=== PATIENT | male | born 1935 | race Caucasian/White ===

== ENCOUNTER 2018-02-04 13:10 | Emergency (ER) | payer MEDICARE, OTHER ==
[~2018-02-04] VITALS: Ht 172.7 cm; Wt 79.8 kg
[~2018-02-04 13:10] MED LIST: Aspir-Low81 MG PO; Mobic15 MG PO; Prinivil10 MG PO; VITAMIN D-32000 UNI1 PO
[2018-02-04 15:18] LABS: BASOPHILS ABSOLUTE AUTO 0.02 K/mm3 (0.00-0.23); BASOPHILS PERCENT AUTO 0 % (0-2); EOSINOPHILS ABSOLUTE AUTO 0.08 K/mm3 (0.00-0.68); EOSINOPHILS PERCENT AUTO 1 % (0-6); Hemoglobin 12.9 g/dL (13.5-17.5); IMMATURE GRAN ABSOLUTE AUTO 0.02 K/mm3 (0.00-0.10); IMMATURE GRAN PERCENT AUTO 0 % (0-1); LYMPHOCYTES ABSOLUTE AUTO 0.61 K/mm3 (0.84-5.20); LYMPHOCYTES PERCENT AUTO 7 % (21-46); MONOCYTES ABSOLUTE AUTO 0.74 K/mm3 (0.16-1.47); MONOCYTES PERCENT AUTO 9 % (4-13); Mean Corpuscular HGB 31.8 pg (26.0-34.0); Mean Corpuscular HGB Conc 33.9 g/dL (31.5-36.5); Mean Corpuscular Volume 94 fL (80-100); Mean Platelet Volume 9.1 fL (9.1-12.4); NEUTROPHILS ABSOLUTE AUTO 7.11 K/mm3 (1.96-9.15); NEUTROPHILS PERCENT AUTO 83 % (41-73); Platelet Count 137 K/mm3 (150-400); RDW Coefficient Variation 13.8 % (11.7-14.2); RDW Standard Deviation 47.5 fL (35.1-46.3); Red Blood Cell Count 4.06 M/mm3 (4.30-5.90); White Blood Cell Count 8.58 K/mm3 (4.00-11.30)
[2018-02-04 15:35] LABS: Anion Gap 9 mmol/L (6-16); Blood Urea Nitrogen 24 mg/dL (8-24); Bun/Creatinine Ratio 27.3 (12.0-20.0); CO2, Blood 22 mmol/L (21-32); Calcium, Blood 8.2 mg/dL (8.5-10.1); Chloride, Blood 108 mmol/L (98-108); Creatinine, Blood 0.88 mg/dL (0.60-1.20); Glomerular Filtration Rate >60 (60-); Glucose, Blood 107 mg/dL (70-99); Potassium, Blood 3.9 mmol/L (3.5-5.5); Sodium, Blood 139 mmol/L (136-145)
[2018-02-04] MEDS ORDERED: Norco 5-325 Ta1 EACH PO (19:47)
[2018-02-04] MEDS ORDERED: CEPH500 PO (19:47)
[2018-02-04] MEDS ORDERED: LEVFLO500 PO (19:47)
== END 2018-02-04 20:15 | disposition home or self-care (01) ==
LOC: ER 13:10
PROVIDERS: Emergency Medicine
DX: S01.312A Laceration without foreign body of left ear, initial encounter (principal); S40.012A Contusion of left shoulder, initial encounter; W11.XXXA Fall on and from ladder, initial encounter; I10 Essential (primary) hypertension; E78.5 Hyperlipidemia, unspecified
CPT/HCPCS: 12054; 13152; 13153; 36415; 73000; 80048; 85025; 90714; 96361; 96365; 96375; 99284; J0690; J3010; J7030

== ENCOUNTER → 2019-03-01 | Outpatient (CLI) | payer MEDICARE, OTHER ==
[~2019-03-01] MED LIST changes: +CEPH500 PO; +LEVFLO500 PO; +Norco 5-325 Ta1 EACH PO
== END | disposition home or self-care (01) ==
LOC: PLD 11:09 → LAB SHORT 11:09
DX: C44.41 Basal cell carcinoma of skin of scalp and neck (principal)
CPT/HCPCS: 88305

== ENCOUNTER → 2020-02-21 | Outpatient (CLI) | payer MEDICARE ==
[2020-02-21 12:37] LABS: Source, Urine Clean Catch
[2020-02-21 14:05] LABS: Bilirubin, Urine Neg (Neg); Blood, Urine Neg (Neg); Glucose Qualitative, Urine Neg (Neg); Ketones, Urine Neg (Neg); Leukocyte Esterase, Urine Neg (Neg); Nitrite, Urine Neg (Neg); Protein, Urine 1+ (Neg); Urobilinogen, Urine NORM (Normal)
[2020-02-21 14:49] LABS: Appearance, Urine Clear (Clear); Color, Urine Yellow (P-Yellow)
== END | disposition home or self-care (01) ==
LOC: LAB SHORT 12:36 → OLS 12:36 → LAB FUT 02-20 12:05
PROVIDERS: Internal Medicine
DX: R31.9 Hematuria, unspecified (principal)
CPT/HCPCS: 81003

== ENCOUNTER 2020-06-01 12:18 | Day surgery (SDC) | payer MEDICARE, OTHER ==
[~2020-06-01] VITALS: Ht 172.7 cm; Wt 70.9 kg
--- NOTE | 2020-06-01 13:22 | NUR ---
06/01/20 1322 Paz Nunez CALL LIGHT WITHIN REACH. PT AMBULATED TO BATHROOM TO VOID
--- NOTE | 2020-06-01 15:08 | NUR ---
06/01/20 1508 Paz Nunez PROCEDURE INCOMPLETE. PT WAS SCHEDULED FOR BARIUM ENEMA PER DR. BRIAN BAILEY.
== END 2020-06-01 15:00 | disposition home or self-care (01) ==
LOC: ORSCSDS 12:18
PROVIDERS: Surgery
PROC: 0DJD8ZZ Inspection of Lower Intestinal Tract, Via Natural or Artificial Opening Endoscopic (ICD-10-PCS; principal; 2020-06-01 13:30)
DX: R19.4 Change in bowel habit (principal); K56.699 Other intestinal obstruction unspecified as to partial versus complete obstruction; K57.30 Diverticulosis of large intestine without perforation or abscess without bleeding; Z86.010 Personal history of colon polyps; Z87.891 Personal history of nicotine dependence; I10 Essential (primary) hypertension; E78.5 Hyperlipidemia, unspecified; G47.33 Obstructive sleep apnea (adult) (pediatric); Z95.0 Presence of cardiac pacemaker; Z79.899 Other long term (current) drug therapy
CPT/HCPCS: J2704; J7120

== ENCOUNTER → 2020-08-07 | Outpatient (CLI) | payer MEDICARE, OTHER | END | disposition home or self-care (01) | LOC: PLD 11:01 → LAB SHORT 11:01 | DX: D04.4 Carcinoma in situ of skin of scalp and neck (principal) | CPT/HCPCS: 88305 ==

== ENCOUNTER 2020-09-06 13:44 | Observation (INO) | payer MEDICARE, OTHER ==
[~2020-09-06] VITALS: Ht 172.7 cm; Wt 72.6 kg
[2020-09-06 14:39] LABS: BASOPHILS ABSOLUTE AUTO 0.01 K/mm3 (0.00-0.23); BASOPHILS PERCENT AUTO 0 % (0-2); EOSINOPHILS ABSOLUTE AUTO 0.01 K/mm3 (0.00-0.68); EOSINOPHILS PERCENT AUTO 0 % (0-6); Hematocrit 39.9 % (37.0-53.0); Hemoglobin 13.4 g/dL (13.5-17.5); IMMATURE GRAN ABSOLUTE AUTO 0.05 K/mm3 (0.00-0.10); IMMATURE GRAN PERCENT AUTO 0 % (0-1); LYMPHOCYTES ABSOLUTE AUTO 1.18 K/mm3 (0.84-5.20); LYMPHOCYTES PERCENT AUTO 10 % (21-46); MONOCYTES ABSOLUTE AUTO 0.91 K/mm3 (0.16-1.47); MONOCYTES PERCENT AUTO 8 % (4-13); Mean Corpuscular HGB 30.9 pg (26.0-34.0); Mean Corpuscular HGB Conc 33.6 g/dL (31.5-36.5); Mean Corpuscular Volume 92 fL (80-100); Mean Platelet Volume 9.4 fL (9.1-12.4); NEUTROPHILS ABSOLUTE AUTO 9.63 K/mm3 (1.96-9.15); NEUTROPHILS PERCENT AUTO 82 % (41-73); Platelet Count 162 K/mm3 (150-400); RDW Coefficient Variation 14.1 % (11.7-14.2); RDW Standard Deviation 48.2 fL (35.1-46.3); Red Blood Cell Count 4.34 M/mm3 (4.30-5.90); White Blood Cell Count 11.79 K/mm3 (4.00-11.30)
[2020-09-06 15:01] LABS: Alanine Aminotransfer (ALT/SGP 27 U/L (12-78); Albumin, Blood 3.5 g/dL (3.4-5.0); Albumin/Globulin Ratio 1.1 (0.8-1.8); Alk Phos 76 U/L (50-136); Anion Gap 8 mmol/L (6-16); Aspartate Aminotrans (AST/SGOT 16 U/L (12-37); Bilirubin, Total 0.7 mg/dL (0.1-1.0); Blood Urea Nitrogen 22 mg/dL (8-24); CO2, Blood 25 mmol/L (21-32); Calcium, Blood 8.8 mg/dL (8.5-10.1); Chloride, Blood 106 mmol/L (98-108); Creatinine, Blood 1.05 mg/dL (0.60-1.20); Globulin, Blood 3.2 g/dL (2.2-4.0); Glomerular Filtration Rate >60 (60-); Glucose, Blood 123 mg/dL (70-99); Potassium, Blood 4.2 mmol/L (3.5-5.5); Sodium, Blood 139 mmol/L (136-145); Total Protein, Blood 6.7 g/dL (6.4-8.2)
[2020-09-06] MEDS ORDERED: METOPROLOL SUCC25 MG PO (16:15)
[2020-09-06] MEDS ORDERED: ELIQUIS5 M3 PO (16:15)
[2020-09-06 18:32] LABS: Source, Urine Clean Catch
[2020-09-06 18:37] LABS: Bilirubin, Urine Neg (Neg); Blood, Urine 1+ (Neg); Glucose Qualitative, Urine Neg (Neg); Ketones, Urine 2+ (Neg); Leukocyte Esterase, Urine Neg (Neg); Nitrite, Urine Neg (Neg); Protein, Urine Neg (Neg); Specific Gravity, Urine 1.015 (1.003-1.022); Urobilinogen, Urine NORM (Normal)
[2020-09-06 18:50] LABS: Appearance, Urine Clear (Clear); Color, Urine Yellow (P-Yellow)
[2020-09-06 19:13] LABS: Bacteria Not Seen /hpf; Red Blood Cells, Urine 0-2 /hpf (0-2); Squamous Epithelial Cells Not Seen /hpf (Few); White Blood Cells, Urine Not Seen /hpf (0-5)
--- NOTE | 2020-09-06 19:24 | NUR ---
PT ARRIVED TO UNIT FROM ED VIA STRETCHER @ 1830, TRANSFERRED TO BED INDEPENDENTLY, REQUEST SOMETHING TO EAT, INITIAL ADMIT COMPLETED, ORIENTED TO ROOM. CALL LIGHT IN REACH, WILL CONTINUE TO MONITOR AND REPORT TO ONCOMING NOC RN.
[2020-09-07 04:14] LABS: BASOPHILS ABSOLUTE AUTO 0.01 K/mm3 (0.00-0.23); BASOPHILS PERCENT AUTO 0 % (0-2); EOSINOPHILS ABSOLUTE AUTO 0.01 K/mm3 (0.00-0.68); EOSINOPHILS PERCENT AUTO 0 % (0-6); Hemoglobin 11.4 g/dL (13.5-17.5); IMMATURE GRAN ABSOLUTE AUTO 0.02 K/mm3 (0.00-0.10); IMMATURE GRAN PERCENT AUTO 0 % (0-1); LYMPHOCYTES ABSOLUTE AUTO 0.93 K/mm3 (0.84-5.20); LYMPHOCYTES PERCENT AUTO 9 % (21-46); MONOCYTES ABSOLUTE AUTO 0.76 K/mm3 (0.16-1.47); MONOCYTES PERCENT AUTO 8 % (4-13); Mean Corpuscular HGB 30.2 pg (26.0-34.0); Mean Corpuscular HGB Conc 32.6 g/dL (31.5-36.5); Mean Corpuscular Volume 93 fL (80-100); Mean Platelet Volume 9.5 fL (9.1-12.4); NEUTROPHILS ABSOLUTE AUTO 8.17 K/mm3 (1.96-9.15); NEUTROPHILS PERCENT AUTO 83 % (41-73); Platelet Count 125 K/mm3 (150-400); RDW Coefficient Variation 14.3 % (11.7-14.2); RDW Standard Deviation 49.1 fL (35.1-46.3); Red Blood Cell Count 3.78 M/mm3 (4.30-5.90)
--- NOTE | 2020-09-07 04:23 | NUR ---
SHIFT SUMMARY PT NEW ADMIT YESTARDAY EVENING. AAOX4/[place]. NPO THIS AM. PT REPORTING DISCOMFORT AT TOLERABLE LEVEL T/O NIGHT, DENIED PAIN MEDICATION. NO NAUSEA/EMESIS. INCREASED DISCOMFORT WHEN UP OOB AMBULATING TO RESTROOM, SBA, BUT PT REPORTS MINIMAL PAIN ONCE BACK IN BED. IVF + ABX PER ORDERS. SURGICAL PACKET ON FRONT OF CHART. PT RESTING WELL THIS AM WITH CALL LIGHT IN REACH.
[2020-09-07 04:26] LABS: International Normalized Ratio 1.04; Prothrombin Time Results 11.1 Sec (9.7-11.5)
[2020-09-07 04:29] LABS: Anion Gap 5 mmol/L (6-16); Blood Urea Nitrogen 16 mg/dL (8-24); Bun/Creatinine Ratio 16.7 (12.0-20.0); CO2, Blood 25 mmol/L (21-32); Chloride, Blood 110 mmol/L (98-108); Creatinine, Blood 0.96 mg/dL (0.60-1.20); Glomerular Filtration Rate >60 (60-); Glucose, Blood 115 mg/dL (70-99); Potassium, Blood 3.9 mmol/L (3.5-5.5); Sodium, Blood 140 mmol/L (136-145)
--- NOTE | 2020-09-07 09:30 | NUR ---
PT SPOUSE STATED "SHE IS NOT HAPPY WITH THE CURRENT TREATMENT PROVIDED BY DR TORRES". SHE REQUESTS A REFERAL TO A GASTROINTEROLOGIST. WILL CONTACT DR TORRES TO INQUIRE ON HIS RECOMMENDATION AND UPDATE HIM ON THE SITUATION.
--- NOTE | 2020-09-07 17:02 | NUR ---
SHIFT SUMMARY APPENDICITIS R/O, A/O X4, VSS, LOW GRADE FEVER TODAY, BETTER W/ TYLENOL, GI CONSULT W/ PT&FAMILY, STARTED BOWEL CARE (SEE EMAR). TOLERATING FULL LIQUID DIET, AMBULATES W/ REPORT OF INCREASED ABD PAIN, PASSING FLATUS/BM, PAIN CONTROLLED PER EMAR. CALL LIGHT IN REACH, WILL CONTINUE TO MONITOR AND REPORT TO ONCOMING NOC RN.
--- NOTE | 2020-09-08 04:19 | NUR ---
SHIFT SUMMARY PT A/O X4. IND IN ROOM. USING CALL LIGHT APPROPRIATELY. PT TOLERATING CLEAR LIQUIDS. NO C/O NAUSEA THIS SHIFT. ALSO DENIED NEED FOR PAIN MEDICATIONS OVERNIGHT. IV FLUIDS INFUSING OVERNIGHT WITH ABX PER ORDERS. PT RESTING IN BED AT THIS TIME. DENIES FURTHER NEEDS. CALL LIGHT IN REACH.
--- NOTE | 2020-09-08 08:35 | NUR ---
PT REPORTS DIARRHEA X4 THROUGHOUT THE NIGHT, PT DECLINED MIRALAX AND STOOL SOFTNER.
[2020-09-08] MEDS ORDERED: ACET325 PO (09:49)
[2020-09-08] MEDS ORDERED: DICY20 PO (09:52)
[2020-09-08] MEDS ORDERED: DOC250 PO (09:53)
[2020-09-08] MEDS ORDERED: DULCOLAX400 MG/5 M PO (09:54)
[2020-09-08] MEDS ORDERED: MIRALAX17 GM PO (09:55)
[2020-09-08] MEDS ORDERED: SENN187 PO (09:56)
--- NOTE | 2020-09-08 10:36 | NUR ---
DISCHARGE SUMMARY PT A&O, SL D/C WNL, DISCHARGE INSTRUCTIONS AND MEDICATION REVIEWED, PT HAD NO FURTHER QUESTIONS. PERSCRIPTIONS FAXED TO [facility] [place]. PT INSTRUCTED TO MAKE FOLLOW UP APPOINTMENT WITH DR. LAMAR IN ONE MONTH AND RETURN TO ER IF SYMPTOMS WORSEN. PT AT BEDSIDE AND TRANSPORTING HOME BY PRIVATE CARE.
== END 2020-09-08 10:33 | disposition home or self-care (01) ==
LOC: ER 13:44 → SURS 13:45
PROVIDERS: Nurse Practitioner Acute Care; Physician Assistant; ADMIT Internal Medicine
DX: R10.31 Right lower quadrant pain (principal); R10.32 Left lower quadrant pain; I48.91 Unspecified atrial fibrillation; Z20.828 Contact with and (suspected) exposure to other viral communicable diseases; I10 Essential (primary) hypertension; E78.5 Hyperlipidemia, unspecified; G47.33 Obstructive sleep apnea (adult) (pediatric); I25.10 Atherosclerotic heart disease of native coronary artery without angina pectoris; N40.0 Benign prostatic hyperplasia without lower urinary tract symptoms; Z79.01 Long term (current) use of anticoagulants; Z79.899 Other long term (current) drug therapy; Z66 Do not resuscitate; Z87.891 Personal history of nicotine dependence; K57.90 Diverticulosis of intestine, part unspecified, without perforation or abscess without bleeding
CPT/HCPCS: 36415; 74176; 80048; 80053; 81001; 83605; 83690; 85025; 85610; 85730; 87040; 96365; 96366; 96376; 99285-25; A9270; G0378; J0295; J0694; J7030; U0003

== ENCOUNTER → 2021-02-05 | Outpatient (CLI) | payer MEDICARE, OTHER ==
[~2021-02-05] MED LIST changes: +ACET325 PO; +DICY20 PO; +DOC250 PO; +DULCOLAX400 MG/5 M PO; +ELIQUIS5 M3 PO; +METOPROLOL SUCC25 MG PO; +MIRALAX17 GM PO; +SENN187 PO
== END ==
LOC: LAB SHORT 10:55 → LAB 10:55
DX: D04.4 Carcinoma in situ of skin of scalp and neck (principal)
CPT/HCPCS: 88305

== ENCOUNTER → 2021-04-16 | Outpatient (CLI) | payer MEDICARE, OTHER | LOC: LAB 11:37 → LAB SHORT 11:37 | DX: L90.5 Scar conditions and fibrosis of skin (principal) | CPT/HCPCS: 88305 ==

== ENCOUNTER → 2021-07-31 | Outpatient (CLI) | payer MEDICARE, OTHER | LOC: LAB 13:42 → LAB SHORT 13:42 | DX: D48.5 Neoplasm of uncertain behavior of skin (principal) | CPT/HCPCS: 88305 ==

== ENCOUNTER → 2023-11-11 | Outpatient (CLI) | payer MEDICARE, OTHER | LOC: LAB 15:19 → LAB SHORT 15:19 | DX: D04.21 Carcinoma in situ of skin of right ear and external auricular canal (principal) | CPT/HCPCS: 88305 ==

== ENCOUNTER → 2023-12-22 | Outpatient (CLI) | payer OTHER | LOC: LAB SHORT 15:31 → LAB 15:31 | DX: D04.21 Carcinoma in situ of skin of right ear and external auricular canal (principal) | CPT/HCPCS: 88305 ==